=== PATIENT | female | born 1980 | race Caucasian/White ===

== ENCOUNTER 2016-08-08 15:19 | Inpatient (IN) | payer BC ==
--- NOTE | ~2016-08-08 | CN ---
Consultation Report [facility] [address] [place]. [address] NAME: ESTEBAN ABREU : 76 STATUS : ADM IN PAT#: [id number] AGE: 36 ADM/REG DATE : 08/08/16 MR#: [id number] REPORT SERV DATE: 08/09/16 DICTATED BY: JUAQUIN CARTAGENA DATE: 08/09/16 REPORT STATUS : Draft TRANSCRIBED BY: MODL DATE: 08/09/16 NEPHROLOGY CONSULTATION DATE OF CONSULTATION: 08/09/2016 INDICATION FOR CONSULTATION: Kidney failure. HISTORY OF PRESENT ILLNESS: Ms. Abreu is a 36-year-old female, who had a recent syncopal event and fall sustaining trauma to her left forehead. She apparently underwent evaluation in outpatient clinic and was found to have an elevated creatinine to 6.7. She was referred to the emergency room for further evaluation. Her labs reflect a bicarb of 16, potassium of 5, creatinine of 6.7, and calcium 8.2 with subsequent labs demonstrating a phosphorus of 5.4. She has a strong family history of polycystic kidney disease. Records indicate that she underwent evaluation for hysterectomy in 2007 which demonstrated polycystic kidney disease on CT scan at that time. Her father had polycystic kidney disease as well as uncle and currently her brother and sister are both being followed for polycystic kidney disease. She indicates that the disease presents in their family about at age 40. Ultrasound obtained earlier demonstrated right kidney length of 19 cm, left kidney length of 18 cm with no evidence of mass or obstruction. CT scan of the brain without contrast was negative and demonstrated no aneurysms. PAST MEDICAL HISTORY: Taking no medications and being followed for nothing chronically. PAST SURGICAL HISTORY: and hysterectomy. ALLERGIES: NONE KNOWN. FAMILY HISTORY: Father, uncle, brother, and sister with polycystic kidney disease. Mother with hypertension and diabetes. MEDICATIONS: Takes only zaaj-ahb-nhemdhn iron tablets. PHYSICAL EXAMINATION: VITAL SIGNS: Blood pressure on presentation 192/94, temperature 98.1, respiratory rate 16, and pulse 84. GENERAL: Pleasant well nourished female, in no distress. HEENT: Bruise over the left forehead. Normocephalic. Pupils equal, reactive to light. Nares patent. No lesions. Throat, no injection. Mucous membranes moist. NECK: No thyromegaly, masses, or bruits. CHEST/LUNGS: Clear to auscultation and percussion. CARDIAC: Regular rate and rhythm. Unable to appreciate murmur, gallop, or rub. ABDOMEN: Both kidneys palpable. Nontender. No hepatosplenomegaly. No masses. BREASTS: Exam not performed. PELVIC: Exam not performed. Consultation Report [facility] [address] [place]. [address] NAME: ESTEBAN ABREU : 76 STATUS : ADM IN PAT#: [id number] AGE: 36 ADM/REG DATE : 08/08/16 MR#: [id number] REPORT SERV DATE: 08/09/16 DICTATED BY: JUAQUIN CARTAGENA DATE: 08/09/16 REPORT STATUS : Draft TRANSCRIBED BY: MADINA DATE: 08/09/16 RECTAL: Exam not performed. EXTREMITIES: No edema. No calf tenderness. DERMIS: No rash. No skin lesions. NEUROLOGIC: Cranial nerves intact. No lateralizing weakness. MUSCULOSKELETAL: No deformity. No joint tenderness. REVIEW OF SYSTEMS: HEENT: Negative except for trauma from recent fall. PULMONARY: Negative. CARDIAC: Negative. GI: Denies nausea, vomiting, or diarrhea. : No gross hematuria, dysuria, pyuria, stone disease, or recurrent UTIs. MUSCULOSKELETAL: Negative. No significant use of nonsteroidal antiinflammatory drugs. DERMIS: No rash. No itching. NEUROLOGIC: No lateralizing weakness. No seizure activity due to her recent syncopal event from which she developed some transient abdominal pain followed by weakness where she sat on the couch and then subsequently fell to the floor from her couch. IMPRESSION: 1. Chronic kidney disease stage 5 approaching end-stage renal disease from polycystic kidney disease. No acute pathology demonstrated. 2. Hypertension likely secondary to advanced kidney failure with polycystic kidney disease. 3. Anemia of chronic kidney disease. 4. Metabolic acidosis. 5. Adult polycystic kidney disease. 6. Remote hysterectomy. 7. Remote . PLAN: 1. KVO, IV fluids. 2. Control blood pressure. 3. Sodium bicarb for acidosis. 4. Auryxia 1 g with meals for elevated phosphorus. 5. Obtain chronic AV fistula with subsequent monitoring in the office until need for dialysis with early transplant referral at this time. EREN/MADINA Juaquin Cartagena M.D. / [id number] Consultation Report [facility] [address] [place]. [address] NAME: ESTEBAN ARBEU : 76 STATUS : ADM IN PAT#: [id number] AGE: 36 ADM/REG DATE : 08/08/16 MR#: [id number] REPORT SERV DATE: 08/09/16 DICTATED BY: JUAQUIN CARTAGENA DATE: 08/09/16 REPORT STATUS : Draft TRANSCRIBED BY: MODL DATE: 08/09/16 CC: Barrera Tran M.D.
--- NOTE | ~2016-08-08 | DS ---
Discharge Summary [facility] [address] [place]. [address] NAME: ESTEBAN ZELAYA : 76 STATUS : DIS IN PAT#: [id number] AGE: 36 ADM/REG DATE : 08/08/16 MR#: [id number] REPORT SERV DATE: 08/11/16 DICTATED BY: CHRISTOS CARMONA DATE: 08/10/16 REPORT STATUS : Draft TRANSCRIBED BY: MODL DATE: 08/10/16 ADMISSION DATE: 08/08/2016 DISCHARGE DATE: 08/10/2016 PRINCIPAL DIAGNOSIS: Chronic kidney disease due to autosomal dominant polycystic kidney disease and metabolic acidosis. SECONDARY DIAGNOSES: Syncope and hypotension. HISTORY OF PRESENT ILLNESS: Please see Dr. De La Cruz's dictation on 08/08/2016. HOSPITAL COURSE: Admitted after a syncopal event brought her to the attention of an urgent care clinic. The syncope was found to be relatively benign and simply vasovagal, but creatinine was found to be greater than 6 with a BUN of greater than 70. The patient was admitted to the hospital, where CT revealed polycystic kidneys. Ultrasound was done also, which continued to reveal polycystic kidneys. She was hydrated with no change in her renal function. She did have metabolic acidosis. The patient was put on bicarbonate. She also was given calcium acetate due to hyperphosphatemia, and arrangements were made for an AV fistula by Dr. Olvera, which we placed as an outpatient. She was also encouraged to seek evaluation by the Transplant Center given her young age and lack of comorbidities, which would contraindicate any kidney transplantation. She was doing well, eating well, with a negative telemetry and no further events and able to be discharged home on 08/10/2016 in satisfactory condition with diet as tolerated, low salt; activity as tolerated with calcium acetate 667 mg t.i.d., bicarbonate 650 mg t.i.d., Norvasc 10 mg daily, clonidine 0.1 patch weekly; following up with Dr. Lincoln Pittman in one to two weeks and Dr. Olvera of General Surgery in one to two weeks as well. LYNN/MADINA Christos Carmona M.D. / [id number] CC: Carmenza Christensen MD Claude Galphin, M.D.
--- NOTE | ~2016-08-08 | HP ---
History And Physical [facility] [address] [place]. [address] NAME: ESTEBAN ZELAYA : 76 STATUS : REG ER PAT#: [id number] AGE: 36 ADM/REG DATE : 08/08/16 MR#: [id number] REPORT SERV DATE: 08/08/16 DICTATED BY: ELIAZAR VAIL DATE: 08/08/16 REPORT STATUS : Draft TRANSCRIBED BY: MODNo DATE: 08/08/16 DATE OF ADMISSION: 08/08/2016 HISTORY OF PRESENT ILLNESS: This is a very pleasant, 36-year-old female, who presented to [facility] because of abnormal labs, anemic, and abnormal kidney function. The patient reported that she had a syncopal episode last Monday and she thought her blood sugar is abnormal, so she went to a walk-in clinic and checked, blood sugar was normal but she was found to have severely abnormal creatinine. The patient reported that when she fell last Monday, she hit her head and there is a superficial bruise on the left side of the forehead. The patient said that she does not have any chest pain, no shortness of breath, no abdominal pain, no fever, no rash, no headaches, no diarrhea, no constipation, no flank pain. The patient is making urine. She said that she was not dizzy. She says that she does not have any neck pain or headache. REVIEW OF SYSTEMS: All 14-point review of system done and all negative. PAST MEDICAL HISTORY: She said that she has polycystic disease in the family. Her father has polycystic kidney disease as well as the brother, but she did not know that she has polycystic kidney disease. Also, blood pressure was elevated, but she said that she also was unaware that her blood pressure was elevated. PAST SURGICAL HISTORY: Includes and hysterectomy. ALLERGIES: NO KNOWN DRUG ALLERGIES. SOCIAL HISTORY: Nonsmoker, nondrinker. No recreational drug use. 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 She has a 12-year-old daughter. FAMILY HISTORY: Father has polycystic kidney disease. Mother has hypertension and diabetes. HOME MEDICATIONS: She only takes bxdw-fxc-sbpmtay iron. No any other medications. PHYSICAL EXAMINATION: GENERAL: Well-nourished, well-developed female, not in acute distress. Resting quietly. VITAL SIGNS: Blood pressure 192/94, temperature 98.1, heart rate 84, respiratory rate 16, and oxygen saturation 100 on room air. Blood pressure was rechecked again, it was 180/80. HEENT: Head atraumatic. There is a bruise on the left forehead. She is normocephalic. Oropharynx clear and moist. NECK: Supple. Trachea is midline. LYMPHATICS: No supraclavicular or cervical lymphadenopathy. LUNGS: Clear to auscultation bilaterally. Normal respiratory effort. CARDIOVASCULAR SYSTEM: Regular rate and rhythm. Point of maximal impulse not displaced. ABDOMEN: Soft, nontender, nondistended. Positive normoactive bowel sounds. EXTREMITIES: No clubbing, cyanosis, or edema. No evidence of flank tenderness on palpation of both flanks. History And Physical [facility] [id number] [place]. [address] NAME: ESTEBAN ZELAYA : 76 STATUS : REG ER PAT#: [id number] AGE: 36 ADM/REG DATE : 08/08/16 MR#: [id number] REPORT SERV DATE: 08/08/16 DICTATED BY: ELIAZAR VAIL DATE: 08/08/16 REPORT STATUS : Draft TRANSCRIBED BY: MADINA DATE: 08/08/16 NEUROLOGICAL: Awake, alert, and oriented in time, place, and person. Muscle strength is 5/5 bilaterally on upper and lower extremities. Deep tendon reflex 2/4 bilaterally on upper and lower extremities. SKIN: Normal color and turgor. PSYCHIATRIC: Normal mood and affect. LABORATORY RESULTS: Sodium 144, potassium 5, chloride 115, carbon dioxide 16, BUN 72, creatinine 6.7, blood sugar is 90, magnesium 2.5, CPK 84, troponin less than 0.02. Her white count 5.9, hemoglobin 9.5, hematocrit 29.3, and the platelet count is 184. PT 14.4. INR 1.1. Urinalysis is ordered, but pending. TSH was 4.34. Her chest x-ray did not show any acute cardiopulmonary process. Her free T4 was 1.01 in the normal range. Her anion gap is 14. ASSESSMENT AND PLAN: This is a very pleasant, 36-year-old female, who presented to [facility] with severely abnormal creatinine and hypertension. 1. Acute kidney injury on chronic kidney disease versus abnormal creatinine at the baseline, history of polycystic kidney disease in the family. It is unclear to me if and this is acute kidney injury on chronic kidney disease versus this is her baseline creatinine but we will start the patient on IV fluids. She already received 1 L bolus. We will start the patient on 100 mL/h of normal saline and also, we will check her urinalysis. We will put a Velasquez catheter and will do kidney ultrasound bilateral. 2. Hypertension. Blood pressure being elevated. Likely secondary to polycystic kidney disease. I am putting the patient on clonidine patch 0.1 mg every seven days, it can be increased depending on the heart rate and also, I will put her on hydralazine as needed. 3. Anemia, likely anemia of chronic kidney disease. We will check iron studies and serum B12, folate level. 4. Also because of the recent fall and hitting her head, I asked Dr. Manning to enter, in the computer, CT of the head without contrast and CT of the cervical spine. 5. We will also consult nailer machine to evaluate this patient. We will put her on a renal diet. We will put a Velasquez catheter. 6. My partner will see this patient starting tomorrow morning. MG/MODL Eliazar Vail M.D. / [id number]
[2016-08-08 16:14] LABS: BASOPHILS 0.3 %; BASOPHILS ABSOLUTE 0.02 10/3/uL (0.0-0.16); EOSINOPHILS 2.1 %; EOSINOPHILS ABSOLUTE 0.12 10/3/uL (0.0-0.53); HEMATOCRIT 29.3 % (36.0-48.0); HEMOGLOBIN 9.5 g/dL (12.0-16.0); IMMATURE GRANULOCYTES 0.2 %; IMMATURE GRANULOCYTES ABSOLUTE 0.01 10/3/uL (0.0-0.11); LYMPHOCYTES 21.7 %; LYMPHOCYTES ABSOLUTE 1.27 10/3/uL (0.67-4.30); MEAN CORPUS HGB CONC 32.4 g/dL (32.0-36.0); MEAN CORPUSCULAR HEMOGLOB 27.4 pg (26.0-34.0); MEAN CORPUSCULAR VOLUME 84.4 fL (80-100); MEAN PLATELET VOLUME 9.5 fL (9.2-13.0); MONOCYTES 5.5 %; MONOCYTES ABSOLUTE 0.32 10/3/uL (0.21-1.20); NEUTROPHILS 70.2 %; NEUTROPHILS ABSOLUTE 4.11 10/3/uL (2.02-8.40); PLATELET COUNT 184 10/3/uL (150-400); RBC DISTRIBUTION WIDTH 14.1 % (12.0-16.0); RED CELL COUNT 3.47 10/6/uL (4.0-5.6); WHITE BLOOD CELLS 5.9 10/3/uL (4.5-10.5)
[2016-08-08 16:16] LABS: MANUAL DIFF NO %
[2016-08-08 16:20] LABS: INTERNATIONAL NORMAL RATI 1.1 UNITS (-); PARTIAL THROMBO TIME 28.6 SEC (22.5-37.2); PROTIME (NOT ORD) 14.4 SEC (12.0-14.5)
[2016-08-08 16:38] LABS: ALBUMIN 3.6 G/DL (3.5-5.0); ALKALINE PHOSPHATASE 96 U/L (45-117); BUN (BLOOD UREA NITROGEN) 72 MG/DL (6-23); CALCIUM, SERUM 8.2 MG/DL (8.5-10.4); CHLORIDE, SERUM 115 MMOL/L (96-112); CO2 (CARBON DIOXIDE) 16 MMOL/L (24-34); CPK 84 U/L (0-200); FREE T4 1.01 NG/DL (0.76-1.46); GFR AFRICAN AMERICAN 8 ML/MIN (>=60); GFR NON AFRICAN AMERICAN 7 ML/MIN (>=60); GLOBULIN 3.6 G/DL (2.5-4.1); GLUCOSE, SERUM 90 MG/DL (60-99); SGOT(AST) 12 U/L (5-40); SGPT(ALT) 16 U/L (5-65); SODIUM, SERUM 144 MMOL/L (135-148); TOTAL BILIRUBIN 0.5 MG/DL (0-1.2); TOTAL PROTEIN 7.2 G/DL (6.0-8.5); TROPONIN I <0.02 NG/ML (<0.05)
[2016-08-08] MEDS ORDERED: FERROUS SULF325 M1 PO (17:26)
[2016-08-08 21:31] LABS: FOLATE 13.6 NG/ML (>5.2)
[2016-08-09 06:37] LABS: BUN (BLOOD UREA NITROGEN) 75 MG/DL (6-23); CALCIUM, SERUM 7.9 MG/DL (8.5-10.4); CHLORIDE, SERUM 118 MMOL/L (96-112); CO2 (CARBON DIOXIDE) 17 MMOL/L (24-34); GFR AFRICAN AMERICAN 8 ML/MIN (>=60); GFR NON AFRICAN AMERICAN 7 ML/MIN (>=60); GLUCOSE, SERUM 94 MG/DL (60-99); PHOSPHORUS, SERUM 5.4 MG/DL (2.5-4.5); SODIUM, SERUM 144 MMOL/L (135-148)
[2016-08-10 06:29] LABS: BASOPHILS 0.4 %; BASOPHILS ABSOLUTE 0.02 10/3/uL (0.0-0.16); EOSINOPHILS 1.9 %; EOSINOPHILS ABSOLUTE 0.09 10/3/uL (0.0-0.53); HEMATOCRIT 28.5 % (36.0-48.0); HEMOGLOBIN 9.4 g/dL (12.0-16.0); IMMATURE GRANULOCYTES 0.2 %; IMMATURE GRANULOCYTES ABSOLUTE 0.01 10/3/uL (0.0-0.11); LYMPHOCYTES 27.9 %; LYMPHOCYTES ABSOLUTE 1.29 10/3/uL (0.67-4.30); MANUAL DIFF NO %; MEAN CORPUSCULAR HEMOGLOB 28.4 pg (26.0-34.0); MEAN CORPUSCULAR VOLUME 86.1 fL (80-100); MEAN PLATELET VOLUME 10.1 fL (9.2-13.0); MONOCYTES 6.1 %; MONOCYTES ABSOLUTE 0.28 10/3/uL (0.21-1.20); NEUTROPHILS 63.5 %; NEUTROPHILS ABSOLUTE 2.93 10/3/uL (2.02-8.40); PLATELET COUNT 178 10/3/uL (150-400); RED CELL COUNT 3.31 10/6/uL (4.0-5.6); WHITE BLOOD CELLS 4.6 10/3/uL (4.5-10.5)
[2016-08-10 06:45] LABS: ALBUMIN 3.3 G/DL (3.5-5.0); BUN (BLOOD UREA NITROGEN) 69 MG/DL (6-23); CALCIUM, SERUM 8.3 MG/DL (8.5-10.4); CHLORIDE, SERUM 116 MMOL/L (96-112); CO2 (CARBON DIOXIDE) 17 MMOL/L (24-34); CREATININE 6.98 MG/DL (0.55-1.02); GFR AFRICAN AMERICAN 8 ML/MIN (>=60); GFR NON AFRICAN AMERICAN 7 ML/MIN (>=60); GLUCOSE, SERUM 91 MG/DL (60-99); PHOSPHORUS, SERUM 5.8 MG/DL (2.5-4.5); SODIUM, SERUM 145 MMOL/L (135-148)
[2016-08-10] MEDS ORDERED: NORV10 PO (11:05)
[2016-08-10] MEDS ORDERED: CATPATCH1 TOP (11:07)
[2016-08-10] MEDS ORDERED: SODBICAR10 PO (11:10)
[2016-08-10] MEDS ORDERED: PHOSLO PO (11:12)
[2016-08-19] MEDS ORDERED: FERROUS SULF325 M1 PO (12:09)
== END 2016-08-10 13:21 | disposition home or self-care (01) | DRG 699 ==
LOC: ER 15:19 → 4SO 18:53
PROVIDERS: Emergency Medicine; Hospitalist; Internal Medicine Nephrology
DX: Q61.2 Polycystic kidney, adult type (principal); E87.2 Acidosis; I12.0 Hypertensive chronic kidney disease with stage 5 chronic kidney disease or end stage renal disease; E83.39 Other disorders of phosphorus metabolism; S00.83XA Contusion of other part of head, initial encounter; D63.1 Anemia in chronic kidney disease; N18.5 Chronic kidney disease, stage 5; R55 Syncope and collapse; Z82.71 Family history of polycystic kidney; W19.XXXA Unspecified fall, initial encounter; Y93.9 Activity, unspecified
CPT/HCPCS: 70450; 71010; 72125; 76775; 80048; 80053; 80069; 81001; 82550; 82607; 82746; 83036; 83735; 84100; 84439; 84443; 84484; 85025; 85610; 85730; 93005; 99285; A9270-GY; G0365; J0360

== ENCOUNTER 2016-08-22 05:31 | Day surgery (SDC) | payer BC ==
--- NOTE | ~2016-08-22 | OP ---
Record Of Operation [facility] [address] [place]. [address] NAME: ESTEBAN ZELAYA : 76 STATUS : [facility]#: [id number] AGE: 36 ADM/REG DATE : 08/22/16 MR#: [id number] REPORT SERV DATE: 08/22/16 DICTATED BY: RICKIE OLVERA DATE: 08/22/16 REPORT STATUS : Draft TRANSCRIBED BY: MADINA DATE: 08/22/16 DATE OF PROCEDURE: 08/22/2016 BOILER HELPER: Joce. PREPROCEDURE DIAGNOSIS: Chronic kidney disease, stage 4. POSTPROCEDURE DIAGNOSIS: Chronic kidney disease, stage 4. PROCEDURE PERFORMED: Creation of left brachiobasilic fistula on the left arm. ANESTHESIA: MAC, local en bloc. SPECIMENS: None. ESTIMATED BLOOD LOSS: Minimal. COMPLICATIONS: None. PROCEDURE IN DETAIL: The patient was brought to the operating room, placed in supine position on the operating room table. The patient had MAC anesthesia without complications. Her arm and artery have been blocked. Left arm was prepped and draped in sterile fashion. A time-out was performed. Identified the correct patient, procedure, and site. We began by using ultrasound to identify the venous anatomy of the upper extremity. We identified an adequate cephalic vein of the forearm; however, the radial artery was very small, and did not appear to be good candidate for a fistula. We identified the basilic vein in the upper arm and it looked of adequate quality throughout. We therefore decided on this fistula. We anesthetized the skin. We made a transverse incision just above the antecubital fossa. We dissected down through the subcutaneous tissue and fat through the fascia. We identified the basilic vein. We ligated branches, freeing it up from the surrounding tissue. We then identified the artery and dissected cephalad and caudad for a short distance. The vein was intimately associated with the nervous structures. We gave IV heparin and allowed adequate time for circulation. We transected the vein distally and brought the vein out from underneath the nervous tissue, so it was not entangled. The distal vein that we were using looked very good quality. We clamped the artery proximally, distally, created an arteriotomy on the medial side of the artery. We completed it with Gustafson scissors. We then attached the vein to the artery using 6-0 Prolene suture in a running fashion. Prior to completion, all vessels were flushed and flushed with heparinized saline. We completed the anastomosis and released the clamps establishing flow through the circuit. There was a nice thrill in the vein. Hemostasis was excellent. There was a good pulse distally. The wound was irrigated with saline. We closed the deeper layers with interrupted Vicryl suture. The skin was closed with 4-0 subcuticular Monocryl and Dermabond. The patient tolerated the procedure well. She was awakened and transferred to recovery in stable condition. Record Of Operation [facility] [address] [place]. [address] NAME: ESTEBAN ZELAYA : 76 STATUS : [facility]#: [id number] AGE: 36 ADM/REG DATE : 08/22/16 MR#: [id number] REPORT SERV DATE: 08/22/16 DICTATED BY: RICKIE OLVERA DATE: 08/22/16 REPORT STATUS : Draft TRANSCRIBED BY: MADINA DATE: 08/22/16 [facility]/MADINA Rickie Olvera MD / [id number] CC: Rickie Olvera MD
[~2016-08-22 05:31] MED LIST: CATPATCH1 TOP; FERROUS SULF325 M1 PO; NORV10 PO; PHOSLO PO; SODBICAR10 PO
== END 2016-08-22 12:08 | disposition home or self-care (01) ==
LOC: SDC 05:31
DX: I12.0 Hypertensive chronic kidney disease with stage 5 chronic kidney disease or end stage renal disease (principal); N18.6 End stage renal disease; Z90.710 Acquired absence of both cervix and uterus; Z83.3 Family history of diabetes mellitus; K21.9 Gastro-esophageal reflux disease without esophagitis; D64.9 Anemia, unspecified; Z98.890 Other specified postprocedural states; Z79.899 Other long term (current) drug therapy
CPT/HCPCS: 36821; 93005; A9270-GY; J0690; J2250; J2795; J3010

== ENCOUNTER 2016-09-26 10:27 | Day surgery (SDC) | payer BC ==
--- NOTE | ~2016-09-26 | OP ---
Record Of Operation [facility] [address] [place]. [address] NAME: ESTEBAN ABREU : 76 STATUS : [facility]#: [id number] AGE: 36 ADM/REG DATE : 09/26/16 MR#: [id number] REPORT SERV DATE: 09/26/16 DICTATED BY: RICKIE OLVERA DATE: 09/26/16 REPORT STATUS : Draft TRANSCRIBED BY: MODL DATE: 09/26/16 DATE OF PROCEDURE: 09/26/2016 SURGEON: Rickie Olvera MD. INJECTION MOLDING SUPERVISOR: Eric. PREPROCEDURE DIAGNOSES: 1. Chronic kidney disease. 2. Left brachiobasilic fistula. POSTPROCEDURE DIAGNOSES: 1. Chronic kidney disease. 2. Left brachiobasilic fistula. PROCEDURE PERFORMED: Transposition of left brachiobasilic fistula. ANESTHESIA: MAC and an arm block. ESTIMATED BLOOD LOSS: Minimal. COMPLICATIONS: None. INDICATIONS: Esteban Abreu is 36, who had a brachiobasilic fistula placed. Recently, she was seen in followup and the fistula was working great. She was offered part two which was elevation and/or transposition. Risks, benefits, and alternatives were discussed. She understood and wished to proceed. OPERATIVE COURSE: The patient was brought to the operating room and placed supine position on the operating room table. The patient had MAC anesthetic and arm block without complications. Left arm was prepped and draped in sterile fashion. A time-out was performed to identify the correct patient, procedure, and site. We began by using the ultrasound to identify the course of the AV fistula. We made an incision along the skin from the previous incision at the antecubital fossa up the arm to the axilla. We deepened this incision through the fat and the fascia until the vein was reached. The vein was dissected cephalad and caudad, ligating branches as we went with silk suture. Once the vein was completely freed and mobile to come to the skin, it was enshrouded in the nerve and we decided that it needed to be transposed in order to allow to elevate properly. We gave IV heparin and allowed adequate time for circulation. We clamped the vein proximally and distally after marking the anterior surface. We divided the vein with scissors and then brought the vein out from under the nerve and reanastomosed on top of the nerve using running 6-0 Prolene in a continuous fashion. Prior to completion, the vein was flushed and flushed with heparinized saline. We released the clamps establishing flow and the thrill was excellent. Hemostasis was adequate. We irrigated the wound. We closed the deeper layers with running Vicryl suture. The subdermal layers were closed with interrupted 3-0 Vicryl suture. The skin was closed with 4-0 subcuticular Monocryl right on top of the Record Of Operation [address] [address] NAME: ESTEBAN ABREU : 76 STATUS : [facility] PAT#: [id number] AGE: 36 ADM/REG DATE : 09/26/16 MR#: [id number] REPORT SERV DATE: 09/26/16 DICTATED BY: RICKIE OLVERA DATE: 09/26/16 REPORT STATUS : Draft TRANSCRIBED BY: MADINA DATE: 09/26/16 fistula. Dermabond was applied. The patient tolerated the procedure well. She was awakened and transferred to recovery in stable condition. MAXIMO/MADINA Rickie Olvera MD / [id number] CC: Rickie Olvera MD NO PCP
[2016-09-26 10:51] LABS: HEMATOCRIT 30.5 % (36.0-48.0); HEMOGLOBIN 9.8 g/dL (12.0-16.0)
[2016-09-26 11:02] LABS: BUN (BLOOD UREA NITROGEN) 61 MG/DL (6-23); CALCIUM, SERUM 8.6 MG/DL (8.5-10.4); CHLORIDE, SERUM 112 MMOL/L (96-112); CO2 (CARBON DIOXIDE) 21 MMOL/L (24-34); CREATININE 7.48 MG/DL (0.55-1.02); GFR AFRICAN AMERICAN 7 ML/MIN (>=60); GFR NON AFRICAN AMERICAN 6 ML/MIN (>=60); GLUCOSE, SERUM 95 MG/DL (60-99); POTASSIUM, SERUM 4.5 MMOL/L (3.5-5.3); SODIUM, SERUM 144 MMOL/L (135-148)
== END 2016-09-26 18:34 | disposition home or self-care (01) ==
LOC: SDC 10:27
PROVIDERS: Student in an Organized Health Care Education/Training Program
PROC: 05SC0ZZ Reposition Left Basilic Vein, Open Approach (ICD-10-PCS; principal; 2016-09-26 12:45)
DX: I12.0 Hypertensive chronic kidney disease with stage 5 chronic kidney disease or end stage renal disease (principal); N18.6 End stage renal disease; R55 Syncope and collapse; Z98.890 Other specified postprocedural states; Z90.710 Acquired absence of both cervix and uterus; Z83.3 Family history of diabetes mellitus; Z82.49 Family history of ischemic heart disease and other diseases of the circulatory system; Z79.899 Other long term (current) drug therapy
CPT/HCPCS: 80048; 85014; 85018; J0690; J2250; J2795; J3010